=== PATIENT | male | born 1980 | race Caucasian/White ===

== ENCOUNTER 2020-05-08 09:22 | Emergency (ER) | payer BC ==
[2020-05-08] MEDS ORDERED: Ketorolac 30 MG/ML SDV IVPUSH ONE (09:40)
[2020-05-08] MEDS ORDERED: Ondansetron 4 MG/2 ML SDV IVPUSH ONE (09:40)
[2020-05-08] MEDS ORDERED: Ketorolac 30 MG/ML SDV ONE (09:41)
[2020-05-08] MEDS ORDERED: Ondansetron 4 MG/2 ML SDV ONE (09:41)
--- NOTE | 2020-05-08 09:42 | EDM.PDOC ---
ED HPI GENERAL MEDICAL PROBLEM - General Chief Complaint: Genitourinary Problem Stated Complaint: POSSIBLE KIDNEY STONES Time Seen by Provider: 05/08/20 09:39 Source of Information: Reports: Patient, Family, RN Notes Reviewed History Limitations: Reports: No Limitations - History of Present Illness INITIAL COMMENTS - FREE TEXT/NARRATIVE: 39-year-old gentleman presents emergency department today complaint of right flank pain, he states it started early this morning at 630 pain will wax and wane is very intense does have nausea and vomiting as well does have a history of nephrolithiasis several years ago - Related Data Allergies Allergy/AdvReac Type Severity Reaction Status Date / Time No Known Allergies Allergy Verified 05/08/20 09:39 Home Meds: Home Meds Hydrocodone/Acetaminophen [Hydrocodon-Acetaminophen 5-325] 1 each PO TID PRN #10 tablet 05/08/20 [Rx] Ketorolac [Toradol] 10 mg PO TID PRN #20 tab 05/08/20 [Rx] Ondansetron [Zofran ODT] 4 mg PO Q6H PRN #5 tab.dis 05/08/20 [Rx] Past Medical History Genitourinary History: Reports: Renal Calculus Social & Family History - Tobacco Use Smoking Status *Q: Never Smoker ED ROS GENERAL - Review of Systems Review Of Systems: See Below Constitutional: Reports: No Symptoms HEENT: Reports: No Symptoms Respiratory: Reports: No Symptoms Cardiovascular: Reports: No Symptoms GI/Abdominal: Reports: Nausea, Vomiting : Reports: Flank Pain ED EXAM, RENAL/ - Physical Exam Exam: See Below Exam Limited By: No Limitations General Appearance: Alert, WD/WN, No Apparent Distress Respiratory/Chest: No Respiratory Distress GI/Abdominal: Soft, Tender (Along the right flank down into the right testicle) Course - Vital Signs Last Recorded V/S: Last Vital Signs Temp 98.2 F 05/08/20 10:14 Pulse 56 L 05/08/20 10:14 Resp 16 05/08/20 10:14 BP 120/71 05/08/20 10:14 Pulse Ox 99 05/08/20 10:14 - Orders/Labs/Meds Orders: Active Orders 24 hr Category Date Time Status Sodium Chloride 0.9% [Normal Saline] 1,000 ml Med 05/08/20 09:45 Active IV ASDIRECTED Medication Orders Sodium Chloride (Normal Saline) 1,000 mls @ 500 mls/hr IV ASDIRECTED [facility] Last Admin: 05/08/20 09:46 Dose: 500 mls/hr Documented by: IMER Harriss: Medications Generic Name Dose Route Start Last Admin Trade Name Ramy PRN Reason Stop Dose Admin Sodium Chloride 1,000 mls @ 500 mls/hr 05/08/20 09:45 05/08/20 09:46 Normal Saline IV 500 mls/hr ASDIRECTED [facility] Administration Discontinued Medications Generic Name Dose Route Start Last Admin Trade Name Ramy PRN Reason Stop Dose Admin Fentanyl 100 mcg 05/08/20 09:49 05/08/20 10:20 Sublimaze IVPUSH 05/08/20 09:50 100 mcg ONETIME ONE Administration Ketorolac Tromethamine 30 mg 05/08/20 09:40 05/08/20 09:46 Toradol IVPUSH 05/08/20 09:41 30 mg ONETIME ONE Administration Ketorolac Tromethamine Confirm 05/08/20 09:41 Toradol Administered 05/08/20 09:42 Dose 30 mg .ROUTE .STK-MED ONE Ondansetron HCl 4 mg 05/08/20 09:40 05/08/20 09:46 Zofran IVPUSH 05/08/20 09:41 4 mg ONETIME ONE Administration Ondansetron HCl Confirm 05/08/20 09:41 Zofran Administered 05/08/20 09:42 Dose 4 mg .ROUTE .STK-MED ONE Departure - Departure Time of Disposition: 11:10 Disposition: Home, Self-Care 01 Condition: Fair Clinical Impression: Kidney stone - Discharge Information Prescriptions: Hydrocodone/Acetaminophen [Hydrocodon-Acetaminophen 5-325] 1 each PO TID PRN #10 tablet PRN Reason: Pain Ketorolac [Toradol] 10 mg PO TID PRN #20 tab PRN Reason: Pain Ondansetron [Zofran ODT] 4 mg PO Q6H PRN #5 tab.dis PRN Reason: Nausea Instructions: Kidney Stones, [id number] Referrals: PCP,None [Primary Care Provider] - Forms: ED Department Discharge Additional Instructions: Use ketorolac as needed for baseline pain control, use hydrocodone for breakthrough pain, use Zofran as needed for nausea and vomiting symptoms, please followup with your primary care provider in 3-5 days if not better, please call return to the emergency department with worsening of symptoms. Your medications have been faxed to [facility] in [place], please follow-up with your primary care provider to further discuss any issues based upon your CT scan findings and the pulmonary nodule Sepsis Event Note (ED) - Focused Exam Vital Signs: Vital Signs Temp Pulse Resp BP Pulse Ox 05/08/20 10:14 98.2 F 56 L 16 120/71 99 - My Orders Last 24 Hours: My Active Orders 05/08/20 09:45 Sodium Chloride 0.9% [Normal Saline] 1,000 ml IV ASDIRECTED - Assessment/Plan Last 24 Hours: My Active Orders 05/08/20 09:45 Sodium Chloride 0.9% [Normal Saline] 1,000 ml IV ASDIRECTED Plan: Assessment Acuity = acute Site and laterality = 3 mm nephrolithiasis right ureter Etiology = unknown Manifestations = nausea and vomiting, right-sided flank pain Location of injury = Home Lab values = CT scan describes a stone above Plan Good relief combination ketorolac and fentanyl as well as Zofran for his nausea and vomiting symptoms. Discharged home with hydrocodone 5/325 1 tab p.o. 3 times daily PRN total #10, ketorolac 10 mg p.o. 3 times daily PRN total #20 and Zofran 4 mg ODT 1 tab p.o. 3 times daily PRN total #5, I did review his CT scan results with him and provided him a copy CT scan had a incidental finding of a 3 mm pulmonary nodule lower lobe left side he has no significant past medical history of smoking history I believe he is at low risk he is going to follow-up with his primary care for further evaluation if needed, elia also provided This note was dictated using [employer] voice recognition software please call with any questions on syntax or grammar.
[2020-05-08] MEDS ORDERED: Sodium Chloride 0.9% 1,000 ML IV SCH (09:45)
[2020-05-08] MEDS ORDERED: fentaNYL 100 MCG/2 ML SDV IVPUSH ONE (09:49)
--- NOTE | 2020-05-08 10:26 | CRLCT ---
INDICATION: Right flank pain. COMPARISON: None. TECHNIQUE: CT abdomen pelvis without contrast. FINDINGS: Subpleural left lower lobe pulmonary nodule measuring 3 mm (series 2, image 14). Noncontrast evaluation of the liver, gallbladder, spleen, pancreas and adrenal glands are unremarkable. Distal right ureteral calculus measuring 3 mm (series 2, image 174) with mild right hydronephrosis/hydroureter and mild right perinephric stranding. Left kidney is unremarkable. Abdominal aorta is non aneurysmal. Urinary bladder is nondistended. No free fluid or free air. Appendix is normal. No evidence of active bowel inflammation or obstruction. Submucosal fat in the colon could be from prior infection or inflammation. No enlarged lymph nodes identified in the abdomen or pelvis. Bones are unremarkable. IMPRESSION: 1. Obstructing right distal ureteral calculus measuring 3 mm with mild right hydronephrosis/hydroureter. 2. Left lower lobe pulmonary nodule measuring 3 mm. According to Fleischner society guidelines low risk patients require no routine follow-up. She will follow up in 12 months for high-risk patients. Please note that all CT scans at this facility use dose modulation, iterative reconstruction, and/or weight-based dosing when appropriate to reduce radiation dose to as low as reasonably achievable. Dictated by Michael Reese MD @ May 08 2020 10:16AM Signed by Dr. Michael Reese @ May 08 2020 10:24AM
== END 2020-05-08 11:32 | disposition home or self-care (01) ==
LOC: JP.ED 09:22
DX: N13.2 Hydronephrosis with renal and ureteral calculous obstruction (principal)
CPT/HCPCS: 74176; 96361; 96374; 96375; 99284; J1885; J2405; J3010; J7030